=== PATIENT | female | born 1965 | race Two or more races ===

== ENCOUNTER 2017-09-03 20:45 | Emergency (ER) | payer OTHER ==
[~2017-09-03] VITALS: Ht 170.2 cm; Wt 90.7 kg
--- NOTE | 2017-09-03 20:46 | NUR ---
PT BIB [facility] WITH A C/O FLU LIKE SYMPTOMS X 1 WK. PT WAS POSITIVE ON ORTHOSTATICS IN THE FIELD. BLOOD SUGAR IN THE FIELD IS 130.
--- NOTE | 2017-09-03 20:53 | NUR ---
1L NS VERBAL ORDER BY DR. MACEDO PT HAS A 20G IV IN RAC. IV IS PATENT AND BENIGN.
[2017-09-03] MEDS ORDERED: ONDANSETRON HCL/PF 4 MG/2 ML VIAL IVP ONE (21:00)
[2017-09-03] MEDS ORDERED: ONDANSETRON HCL/PF 4 MG/2 ML VIAL ONE (21:07)
[2017-09-03] MEDS ORDERED: IV NS 0.9% 1,000 ML BAG IV ONE (21:30)
[2017-09-03 21:33] LABS: HEMATOCRIT 37 % (33-45); HEMOGLOBIN 12.6 g/dL (11.5-14.8); MEAN CORPUSCULAR HEMOGLOBIN 31 PG (26.0-33.0); MEAN CORPUSCULAR HGB CONC 34 g/dl (31.0-36.0); MEAN CORPUSCULAR VOLUME 91 fL (82-100); PLATELET COUNT (AUTO) 259 /CMM (150-450); RDW COEFFICIENT OF VARIATION 13.4 (11.5-15.0); RED BLOOD CELL COUNT(AUTO) 4.05 MIL/uL (4.0-5.2); WHITE BLOOD COUNT (AUTO) 5.7 K/uL (4.3-11.0)
[2017-09-03 21:34] LABS: BASOPHILS % (AUTO) 0.5 % (0.0-2.0); EOSINOPHILS % (AUTO) 0.6 % (0.0-6.0); LYMPHOCYTES % (AUTO) 17.8 % (20.0-44.0); MONOCYTES # (AUTO) 0.3 /CMM (0.1-1.30); MONOCYTES % (AUTO) 5.7 % (2.0-12.0); NEUTROPHILS # (AUTO) 4.4 /CMM (1.8-8.9); NEUTROPHILS % (AUTO) 75.4 % (43.0-81.0)
[2017-09-03] MEDS ORDERED: ACETAMINOPHEN ES 500 MG TABLET ONE (21:35)
[2017-09-03] MEDS ORDERED: IBUPROFEN 600 MG TABLET PO ONE ×2 (21:36→22:00)
[2017-09-03 21:43] LABS: CALCIUM, SERUM 8.7 mg/dL (8.5-10.1); CREATININE 0.9 mg/dL (0.6-1.3); POTASSIUM 4.4 mmol/L (3.5-5.1)
[2017-09-03] MEDS ORDERED: ACETAMINOPHEN ES 500 MG TABLET PO ONE (22:00)
--- NOTE | 2017-09-03 23:26 | NUR ---
IV removed. Catheter intact and site benign. Pressure and 4x4 applied to site. No bleeding noted.Patient discharged to home in stable condition. Written and verbal after care instructions given. Patient verbalizes understanding of instruction. PT AMBULATED OUT WITH A STEADY GAIT. VSS.
[2017-09-03 23:27] VITALS: BP 100/59
== END 2017-09-03 23:28 | disposition home or self-care (01) ==
LOC: ER 20:46
DX: J11.1 Influenza due to unidentified influenza virus with other respiratory manifestations (principal); Z88.0 Allergy status to penicillin
CPT/HCPCS: 36415; 71010; 80048; 85025; 87804 ×2; 96361; 96374; 99285; A4606; J2405; J7030 ×2; Z7610; 87400